=== PATIENT | male | born 1980 | race American Indian/Alaskan Native ===

== ENCOUNTER 2018-07-23 06:33 | Emergency (ER) | payer SELFPAY ==
--- NOTE | 2018-07-23 09:57 | XRay Report ---
FINAL REPORT EXAM: XR CHEST ROUTINE 2V HISTORY: cough, chills, sob TECHNIQUE: Chest, two views PRIORS: None. FINDINGS: The heart size is normal. Mediastinal contours are normal. Pulmonary vasculature is not congested. The lungs are clear. There are no pleural effusion seen. There is no evidence of pneumothorax. IMPRESSION: There is no acute abnormality identified.
--- NOTE | 2018-07-23 10:10 | Emergency Department Report ---
- General Chief Complaint: Dyspnea/Respdistress Stated Complaint: DIFFICULTY BREATHING Time Seen by Provider: 07/23/18 09:31 Source: patient Mode of arrival: Ambulatory Limitations: No Limitations - History of Present Illness Initial Comments: 37-year-old male no significant past medical history is as auscultating cough productive of yellow sputum 3 days, chills and hot flashes, and shortness of breath. He denies wheezing. He did not receive flu shot. He is to have a documented fever. He denies recent travel or sick contacts. He smokes cigarettes occasionally. He complains of bilateral flank pain with coughing episodes and denies chest pain. Patient was recently at a [facility] intermediate. - Related Data Previous Rx's Medication Instructions Recorded Last Taken Type Azithromycin [Zithromax Z-LYLY] 1 dose PO DAILY 5 Days tab 07/23/18 Unknown Rx Guaifenesin/Pseudoephedrne HCl 1 each PO BID #20 tab.er.12h 07/23/18 Unknown Rx [Mucinex D ER 600-60 mg Tablet] Ibuprofen [Motrin] 800 mg PO Q8HR PRN #30 tablet 07/23/18 Unknown Rx Allergies Allergy/AdvReac Type Severity Reaction Status Date / Time No Known Allergies Allergy Unverified 07/23/18 07:02 ED Review of Systems ROS: Stated complaint: DIFFICULTY BREATHING Other details as noted in HPI Comment: All other systems reviewed and negative ED Past Medical Hx - Past Medical History Previous Medical History?: No - Surgical History Past Surgical History?: Yes Additional Surgical History: Rectal surgery."Had a anal wart removed" - Social History Smoking Status: Current Every Day Smoker Substance Use Type: Marijuana - Medications Home Medications: Home Medications Medication Instructions Recorded Confirmed Last Taken Type Azithromycin [Zithromax Z-LYLY] 1 dose PO DAILY 5 Days tab 07/23/18 Unknown Rx Guaifenesin/Pseudoephedrne HCl 1 each PO BID #20 tab.er.12h 07/23/18 Unknown Rx [Mucinex D ER 600-60 mg Tablet] Ibuprofen [Motrin] 800 mg PO Q8HR PRN #30 tablet 07/23/18 Unknown Rx ED Physical Exam - General Limitations: No Limitations - Other Other exam information: General: No limitations, patient is alert in no acute distress Head exam: Atraumatic, normocephalic Eyes exam: Normal appearance, pupils equal reactive to light, extraocular movements intact ENT: Moist mucous membrane Neck exam: Normal inspection, full range of motion, no meningismus nontender Respiratory exam: Clear to auscultation bilateral, no wheezes, rales, crackles Cardiovascular: Normal rate and rhythm, normal heart sounds Abdomen: Soft, nondistended, and nontender, with normal bowel sounds, no rebound, or guarding Extremity: Full range of motion normal inspection no deformity Back: Normal Inspection, full range of motion, no tenderness Neurologic: Alert, oriented x3, cranial nerves intact, no motor or sensory deficit Psychiatric: normal affect, normal mood Skin: Warm, dry, intact ED Course Vital Signs 07/23/18 07/23/18 07/23/18 07:25 10:14 11:51 Temperature 99.6 F Pulse Rate 103 H 103 H 97 H Respiratory 20 18 20 Rate Blood Pressure 141/78 Blood Pressure 141/78 132/83 139/79 [Right] O2 Sat by Pulse 94 96 Oximetry - Reevaluation(s) Reevaluation #1: 07/23/18 10:23 Patient continues to have mild tachycardia. Basic labs, a medication, medication for low-grade fever, and 1 L normal saline ordered. Will reassess ED Medical Decision Making - Lab Data Result diagrams: 07/23/18 10:27 07/23/18 10:27 Lab Results 07/23/18 07/23/18 07/23/18 Range/Units 10:27 10:27 10:27 WBC 5.3 (4.5-11.0) K/mm3 RBC 3.95 (3.65-5.03) M/mm3 Hgb 11.9 (11.8-15.2) gm/dl Hct 36.1 (35.5-45.6) % MCV 91 (84-94) fl MCH 30 (28-32) pg MCHC 33 (32-34) % RDW 14.7 (13.2-15.2) % Plt Count 144 (140-440) K/mm3 Baso % (Auto) [employer] PT 14.7 (12.2-14.9) Sec. INR 1.08 (0.87-1.13) Sodium 137 (137-145) mmol/L Potassium 3.6 (3.6-5.0) mmol/L Chloride 99.8 (98-107) mmol/L Carbon Dioxide 25 (22-30) mmol/L Anion Gap 16 mmol/L BUN 15 (9-20) mg/dL Creatinine 1.1 (0.8-1.5) mg/dL Estimated GFR > 60 ml/min BUN/Creatinine Ratio 14 % Glucose 95 (75-100) mg/dL Calcium 8.2 L (8.4-10.2) mg/dL - Radiology Data Radiology results: report reviewed FINAL REPORT EXAM: XR CHEST ROUTINE 2V HISTORY: cough, chills, sob TECHNIQUE: Chest, two views PRIORS: None. FINDINGS: The heart size is normal. Mediastinal contours are normal. Pulmonary vasculature is not congested. The lungs are clear. There are no pleural effusion seen. There is no evidence of pneumothorax. IMPRESSION: There is no acute abnormality identified. - Medical Decision Making X-ray does not show a pneumonia. Patient because of the Z-Lyly and symptomatic treatment for bronchitis/URI symptoms. Outpatient follow-up will be encouraged. Repeat vital signs show improved tachycardia. Tachycardia improved with normal saline, Toradol, and Tylenol. Patient reports feeling better and will be discharged - Differential Diagnosis pneumonia, bronchitis, URI, viral syndrome Critical Care Time: No Critical care attestation.: If time is entered above; I have spent that time in minutes in the direct care of this critically ill patient, excluding procedure time. ED Disposition Clinical Impression: Acute bronchitis, URI (upper respiratory infection) Disposition: - TO HOME OR SELFCARE Is pt being admited?: No Does the pt Need Aspirin: No Condition: Stable Instructions: Acute Bronchitis (ED) Additional Instructions: Take the medication as prescribed. Follow up with your doctor or the clinic/doctor provided. Return if symptoms worsen as indicated by your discharge instructions Prescriptions: Azithromycin [Zithromax Z-LYLY] 1 dose PO DAILY 5 Days tab Guaifenesin/Pseudoephedrne HCl [Mucinex D ER 600-60 mg Tablet] 1 each PO BID #20 tab.er.12h Ibuprofen [Motrin] 800 mg PO Q8HR PRN #30 tablet PRN Reason: Pain, Moderate (4-6) Referrals: [facility] [Provider Group] - 3-5 Days BIN MARIE MD [Staff Physician] - 3-5 Days Time of Disposition: 12:06
[2018-07-23] MEDS ORDERED: TYLENOL PO ONE (10:22)
[2018-07-23] MEDS ORDERED: NACL 0.9% 1000 ML 1,000 ML IV ONE (10:22)
[2018-07-23] MEDS ORDERED: TORADOL IV ONE (10:22)
[2018-07-23 10:53] LABS: Hematocrit 36.1 % (35.5-45.6); Hemoglobin 11.9 gm/dl (11.8-15.2); Mean Corpuscular HGB Conc 33 % (32-34); Mean Corpuscular Volume 91 fl (84-94); Platelet Count 144 K/mm3 (140-440); Red Blood Count 3.95 M/mm3 (3.65-5.03); Red Cell Distribution Width 14.7 % (13.2-15.2)
[2018-07-23 11:00] LABS: INR 1.08 (0.87-1.13)
[2018-07-23 11:07] LABS: BUN/Creatinine Ratio 14; Blood Urea Nitrogen 15 mg/dL (9-20); Calcium 8.2 mg/dL (8.4-10.2); Hemolysis Index 4
[2018-07-23 11:52] VITALS: BP 139/79
[2018-07-23 13:54] LABS: Basophils % (Manual) 0 % (0.0-1.8); Total Cells Counted 100
[2018-07-23 13:55] LABS: Anisocytosis 1+
[2018-07-23 13:56] LABS: Platelet Estimate Consistent w Auto
== END 2018-07-23 13:44 | disposition home or self-care (01) ==
LOC: ED 06:33
DX: J20.9 Acute bronchitis, unspecified (principal); J06.9 Acute upper respiratory infection, unspecified; F17.200 Nicotine dependence, unspecified, uncomplicated; F12.90 Cannabis use, unspecified, uncomplicated
CPT/HCPCS: 36415; 71046; 80048; 85007; 85025; 85610; 96374; 99284; J1885; J7030